=== PATIENT | male | born 2000 | race Caucasian/White ===

== ENCOUNTER 2018-11-13 10:32 | Emergency (ER) | payer OTHER ==
[~2018-11-13] VITALS: Ht 152.4 cm; Wt 122.5 kg
[2018-11-13] MEDS ORDERED: IBUPROFEN 800800 M1 PO (11:41)
[2018-11-13 13:17] VITALS: BP 152/81
== END 2018-11-13 12:45 | disposition home or self-care (01) ==
LOC: ER 10:32
DX: S63.622A Sprain of interphalangeal joint of left thumb, initial encounter (principal); S63.512A Sprain of carpal joint of left wrist, initial encounter; J45.909 Unspecified asthma, uncomplicated; Z88.1 Allergy status to other antibiotic agents; W22.09XA Striking against other stationary object, initial encounter; Y93.89 Activity, other specified; Y92.89 Other specified places as the place of occurrence of the external cause; Y99.8 Other external cause status